=== PATIENT | male | born 1985 | race African-American/Black ===

== ENCOUNTER 2024-10-17 20:59 | Emergency (ER) | payer OTHER, SELFPAY ==
[2024-10-17] MEDS ORDERED: Ibuprofen 200 MG TAB ONE (22:25)
== END 2024-10-17 23:38 | disposition home or self-care (01) ==
LOC: CSHERS 20:59
DX: S82.65XA Nondisplaced fracture of lateral malleolus of left fibula, initial encounter for closed fracture (principal); Z79.82 Long term (current) use of aspirin; W18.40XA Slipping, tripping and stumbling without falling, unspecified, initial encounter; Y93.01 Activity, walking, marching and hiking
CPT/HCPCS: 99283